=== PATIENT | male | born 1965 | race Caucasian/White ===

== ENCOUNTER 2016-12-02 19:31 | Emergency (ER) | payer OTHER ==
[~2016-12-02] VITALS: Ht 170.2 cm; Wt 73.6 kg
[2016-12-02] MEDS ORDERED: ULTRAM50 MG PO (22:28)
[2016-12-02] MEDS ORDERED: FLEXERIL10 MG PO (22:28)
[2016-12-02 22:56] VITALS: BP 156/102
== END 2016-12-02 23:01 | disposition home or self-care (01) ==
LOC: EME 19:31
DX: S20.211A Contusion of right front wall of thorax, initial encounter (principal); V59.3XXA Occupant (driver) (passenger) of pick-up truck or van injured in unspecified nontraffic accident, initial encounter
CPT/HCPCS: 71111; 99281; 99283